=== PATIENT | female | born 1990 | race Caucasian/White ===

== ENCOUNTER 2018-03-19 18:25 | Emergency (ER) | payer OTHER, MEDICAID ==
[~2018-03-19] VITALS: Ht 162.6 cm; Wt 97.5 kg
[~2018-03-19 18:25] MED LIST: ACETAMINOPHEN-1 EAC1 PO; ACETAMINOPHEN-120 ML PO; AMOXICILLIN 50500 M1 PO; AMOXICILLIN 50500 MG PO; ASPERDRINK81 MG PO; ATIVAN1 MG PO; BACTRIM 400-801 EACH PO; BACTRIM DS TAB1 EACH PO; BENADRYL25 MG PO; DARVOCET-N 1001 EACH PO; ELIMITE60 GM TP; FIBER LAXATIVE500 MG PO; FIORINAL 50-321 EACH PO; FLAGYL500 MG PO; IBUPROFEN 800800 M1 PO; IBUPROFEN 800800 MG PO; KEFLEX500 MG PO; KENALOG60 GM TP; LIDOCAINE VISC100 M1 SWISH&SPIT; MEDROLDOSEPACK PO; NAPROSYN500 MG PO; NIX TP; NOHOMEMEDICATIONS; NORCO 5-325 TA1 EAC1 PO; PERCOCET 5-3251 EACH PO; PERCOCET PO; PHENERGAN-CODE120 ML PO; PREDNISONE 10 M10 MG PO; ZOFRAN ODT4 MG PO
[2018-03-19] MEDS ORDERED: MYRBETRIQ25 MG PO (18:42)
[2018-03-19 19:43] LABS: URINE BLOOD NEGATIVE (Negative); URINE CLARITY CLEAR; URINE COLOR OTHER; URINE GLUCOSE-RANDOM NEGATIVE (Negative); URINE KETONES NEGATIVE (Negative); URINE LEUKOCYTES-REFLEX NEGATIVE (Negative); URINE NITRITE-REFLEX NEGATIVE (Negative); URINE PROTEIN NEGATIVE (Negative); URINE SPECIFIC GRAVITY >= 1.030 (1.005-1.030); URINE UROBILINOGEN 0.2 E.U./dl (0.2-1.0)
[2018-03-19 19:44] LABS: URINE BILIRUBIN 1+ (Negative)
[2018-03-19 20:05] LABS: ICTOTEST (BILI CONFIRMATORY) Negative (Negative)
[2018-03-19 20:53] LABS: ABSOLUTE BASOPHILS 0.1 thou/uL (0.0-0.2); ABSOLUTE EOSINOPHILS 0.2 thou/uL (0.0-0.7); ABSOLUTE LYMPHOCYTES 3.6 thou/uL (0.8-5.3); ABSOLUTE MONOCYTES 0.6 thou/uL (0.0-1.2); ABSOLUTE NEUTROPHILS 4.3 thou/uL (1.6-8.1); EOSINOPHILS 2.5 %; HEMATOCRIT 41.9 % (37.0-47.0); LYMPHOCYTES 40.6 %; MCH 29.3 pg (26.0-34.0); MCHC 33.5 g/dL (28.0-37.0); MCV 87.6 fL (80.0-100.0); MPV 8.5 fl. (7.2-11.1); NUCLEATED RBCS 0 /100WBC; PLATELET COUNT* 280 thou/uL (150-400); POLYS 48.9 %; RBC 4.78 mil/uL (4.20-5.00); RDW-CV 12.4 % (10.5-14.5); WBC 8.8 thou/uL (4.0-11.0)
[2018-03-19 20:59] LABS: CALCIUM 8.8 mg/dL (8.5-10.1); CREATININE 0.8 mg/dL (0.6-1.3); POTASSIUM 4.1 mmol/L (3.5-5.1)
[2018-03-19 21:04] LABS: ALBUMIN 3.6 g/dL (3.4-5.0); TOTAL BILIRUBIN 0.2 mg/dL (<0.1-1.0); TOTAL PROTEIN 7.2 g/dL (6.4-8.2)
[2018-03-19] MEDS ORDERED: FLOMAX0.4 MG PO (21:11)
[2018-03-19] MEDS ORDERED: TORADOL 10 MG T10 MG PO (21:13)
[2018-03-19 23:18] VITALS: BP 120/73
== END 2018-03-19 23:20 | disposition home or self-care (01) ==
LOC: M.ERS 18:25
PROVIDERS: Nurse Practitioner Family
DX: R33.9 Retention of urine, unspecified (principal); F17.210 Nicotine dependence, cigarettes, uncomplicated; Z90.49 Acquired absence of other specified parts of digestive tract; Z88.6 Allergy status to analgesic agent

== ENCOUNTER 2018-09-30 17:13 | Emergency (ER) | payer OTHER, MEDICAID ==
[~2018-09-30] VITALS: Ht 162.6 cm; Wt 99.8 kg
[~2018-09-30 17:13] MED LIST changes: +FLOMAX0.4 MG PO; +MYRBETRIQ25 MG PO; +TORADOL 10 MG T10 MG PO
[2018-09-30] MEDS ORDERED: VESICARE10 M1 PO (17:17)
[2018-09-30] MEDS ORDERED: PRED-G 1% EYE DR5 ML OPHTHALMIC (17:49)
[2018-09-30 17:59] VITALS: BP 123/76
--- NOTE | 2018-10-01 10:10 | EKG ---
[place] [address] ELECTROCARDIOGRAM REPORT Name: ECTOR CHRISTIANSON Room: [facility]#: [id number] Admission: 09/30/18 Attend Phys: Discharge: 09/30/18 Date of : [birth year] Report #: [id number] THIS REPORT FOR: //name// [facility] ED Test Date: 2018-09-30 Test Time: 17:21:12 Pat Name: ECTOR CHRISTIANSON Department: Room: Gender: F Chiseler Head: Ezequiel TORRES : 1990 Requested By: Tad Gurrola Order Number: [id number] Noreen MD: Harpreet Cortez Measurements Intervals [place] Rate: 93 P: 17 MA: 119 QRS: 14 QRSD: 96 T: 15 QT: 360 QTc: 448 Interpretive Statements Sinus rhythm Borderline short MA interval Low voltage, precordial leads Compared to ECG 01/21/2014 00:33:33 Low QRS voltage now present Electronically Signed On 10-01-2018 10:10:41 DRIVER RECRUITER by Harpreet Cortez [email or web address] <ELECTRONICALLY SIGNED> By: Harpreet Cortez MD, [facility] 10/01/18 1010 20 20 Harpreet Cortez MD, [facility] /EPI
== END 2018-09-30 18:00 | disposition home or self-care (01) ==
LOC: M.ERS 17:13
DX: R09.89 Other specified symptoms and signs involving the circulatory and respiratory systems (principal); R05 Cough; H11.31 Conjunctival hemorrhage, right eye; Z90.49 Acquired absence of other specified parts of digestive tract; F17.210 Nicotine dependence, cigarettes, uncomplicated; Z88.8 Allergy status to other drugs, medicaments and biological substances

== ENCOUNTER 2018-10-19 15:57 | Emergency (ER) | payer OTHER, MEDICAID ==
[~2018-10-19] VITALS: Ht 162.6 cm; Wt 99.8 kg
[~2018-10-19 15:57] MED LIST changes: +PRED-G 1% EYE DR5 ML OPHTHALMIC; +VESICARE10 M1 PO
[2018-10-19] MEDS ORDERED: NAPROSYN500 MG PO (17:44)
[2018-10-19] MEDS ORDERED: FLEXERIL PO (17:44)
[2018-10-19 17:45] VITALS: BP 134/72
== END 2018-10-19 17:45 | disposition home or self-care (01) ==
LOC: M.ERS 15:57
DX: M25.512 Pain in left shoulder (principal); F17.210 Nicotine dependence, cigarettes, uncomplicated; Z88.6 Allergy status to analgesic agent; Z90.49 Acquired absence of other specified parts of digestive tract

== ENCOUNTER 2018-12-15 23:23 | Emergency (ER) | payer OTHER, MEDICAID ==
[~2018-12-15] VITALS: Ht 160 cm; Wt 98.4 kg
[~2018-12-15 23:23] MED LIST changes: +FLEXERIL PO
[2018-12-15 23:53] LABS: ABSOLUTE BASOPHILS 0.1 thou/uL (0.0-0.2); ABSOLUTE EOSINOPHILS 0.3 thou/uL (0.0-0.7); ABSOLUTE MONOCYTES 0.7 thou/uL (0.0-1.2); ABSOLUTE NEUTROPHILS 6.7 thou/uL (1.6-8.1); BASOPHILS 0.7 %; EOSINOPHILS 2.3 %; HEMATOCRIT 40.2 % (37.0-47.0); HEMOGLOBIN 13.7 gm/dL (12.0-15.0); LYMPHOCYTES 28.1 %; MCH 30.1 pg (26.0-34.0); MCHC 34.2 g/dL (28.0-37.0); MONOCYTES 6.4 %; MPV 8.3 fl. (7.2-11.1); NUCLEATED RBCS 0 /100WBC; PLATELET COUNT* 286 thou/uL (150-400); POLYS 62.5 %; RBC 4.56 mil/uL (4.20-5.00); RDW-CV 12.6 % (10.5-14.5); WBC 10.8 thou/uL (4.0-11.0)
[2018-12-16 00:06] LABS: CALCIUM 9.1 mg/dL (8.5-10.1); CREATININE 0.8 mg/dL (0.6-1.3); POTASSIUM 3.7 mmol/L (3.5-5.1)
[2018-12-16 00:11] LABS: ALBUMIN 3.8 g/dL (3.4-5.0); TOTAL BILIRUBIN 0.1 mg/dL (<0.1-1.0); TOTAL PROTEIN 7.6 g/dL (6.4-8.2)
[2018-12-16] MEDS ORDERED: NORCO 5-325 TA1 EACH PO (02:11)
[2018-12-16] MEDS ORDERED: ZOFRAN ODT4 MG PO (02:11)
[2018-12-16 02:22] VITALS: BP 115/60
== END 2018-12-16 02:24 | disposition home or self-care (01) ==
LOC: M.ERS 23:23
PROVIDERS: Emergency Medicine
DX: S06.0X0A Concussion without loss of consciousness, initial encounter (principal); F17.210 Nicotine dependence, cigarettes, uncomplicated; Z88.6 Allergy status to analgesic agent; Z90.49 Acquired absence of other specified parts of digestive tract; W18.39XA Other fall on same level, initial encounter; Y92.89 Other specified places as the place of occurrence of the external cause; Y93.89 Activity, other specified; Y99.8 Other external cause status

== ENCOUNTER 2018-12-24 21:17 | Emergency (ER) | payer OTHER, MEDICAID ==
[~2018-12-24] VITALS: Ht 160 cm; Wt 98.4 kg
[~2018-12-24 21:17] MED LIST changes: +NORCO 5-325 TA1 EACH PO
[2018-12-24 22:22] LABS: ABSOLUTE BASOPHILS 0.1 thou/uL (0.0-0.2); ABSOLUTE EOSINOPHILS 0.2 thou/uL (0.0-0.7); ABSOLUTE LYMPHOCYTES 3.4 thou/uL (0.8-5.3); ABSOLUTE MONOCYTES 0.6 thou/uL (0.0-1.2); ABSOLUTE NEUTROPHILS 3.9 thou/uL (1.6-8.1); BASOPHILS 1.5 %; EOSINOPHILS 2.9 %; HEMATOCRIT 41.7 % (37.0-47.0); HEMOGLOBIN 14.2 gm/dL (12.0-15.0); MCH 29.5 pg (26.0-34.0); MCHC 34.1 g/dL (28.0-37.0); MCV 86.5 fL (80.0-100.0); MONOCYTES 7.1 %; MPV 8.6 fl. (7.2-11.1); NUCLEATED RBCS 0 /100WBC; PLATELET COUNT* 335 thou/uL (150-400); POLYS 47.5 %; RBC 4.82 mil/uL (4.20-5.00); RDW-CV 12.9 % (10.5-14.5); WBC 8.3 thou/uL (4.0-11.0)
[2018-12-24 22:29] LABS: APTT 28.8 Seconds (25.0-31.3); INR 0.9; PROTIME 9.6 Seconds (9.20-11.50)
[2018-12-24 22:31] LABS: ALBUMIN 3.9 g/dL (3.4-5.0); CALCIUM 9.4 mg/dL (8.5-10.1); CREATININE 0.8 mg/dL (0.6-1.3); POTASSIUM 3.3 mmol/L (3.5-5.1); TOTAL BILIRUBIN 0.2 mg/dL (<0.1-1.0); TOTAL PROTEIN 7.8 g/dL (6.4-8.2)
[2018-12-25] MEDS ORDERED: ONDANSETRON HCL4 M2 PO (00:04)
[2018-12-25] MEDS ORDERED: ACETAMINOPHEN-1 EAC1 PO (00:04)
[2018-12-25 01:33] VITALS: BP 139/63
== END 2018-12-25 01:35 | disposition still patient (30) ==
LOC: M.ERS 21:17
PROVIDERS: Physician Assistant
DX: R51 Headache (principal); F17.210 Nicotine dependence, cigarettes, uncomplicated; Z88.6 Allergy status to analgesic agent; Z90.49 Acquired absence of other specified parts of digestive tract

== ENCOUNTER 2019-12-07 21:31 | Emergency (ER) | payer OTHER ==
[~2019-12-07] VITALS: Ht 160 cm; Wt 92.1 kg
[~2019-12-07 21:31] MED LIST changes: +ONDANSETRON HCL4 M2 PO
[2019-12-07] MEDS ORDERED: PROZAC20 M1 PO (21:43)
[2019-12-07 22:45] LABS: CALCIUM 8.9 mg/dL (8.5-10.1); CREATININE 0.8 mg/dL (0.6-1.3); POTASSIUM 3.3 mmol/L (3.5-5.1)
[2019-12-07 22:50] LABS: ALBUMIN 3.8 g/dL (3.4-5.0); TOTAL BILIRUBIN 0.2 mg/dL (<0.1-1.0); TOTAL PROTEIN 8.2 g/dL (6.4-8.2)
[2019-12-07 22:54] LABS: ABSOLUTE BASOPHILS 0.1 thou/uL (0.0-0.2); ABSOLUTE EOSINOPHILS 0.2 thou/uL (0.0-0.7); ABSOLUTE LYMPHOCYTES 3.2 thou/uL (0.8-5.3); ABSOLUTE MONOCYTES 0.8 thou/uL (0.0-1.2); ABSOLUTE NEUTROPHILS 5.8 thou/uL (1.6-8.1); BASOPHILS 1.3 %; EOSINOPHILS 1.8 %; HEMATOCRIT 41.1 % (37.0-47.0); HEMOGLOBIN 14.1 gm/dL (12.0-15.0); LYMPHOCYTES 31.8 %; MCH 29.7 pg (26.0-34.0); MCHC 34.3 g/dL (28.0-37.0); MCV 86.5 fL (80.0-100.0); MONOCYTES 7.8 %; MPV 8.5 fl. (7.2-11.1); NUCLEATED RBCS 0 /100WBC; PLATELET COUNT* 291 thou/uL (150-400); POLYS 57.3 %; RBC 4.76 mil/uL (4.20-5.00); RDW-CV 13.2 % (10.5-14.5); WBC 10.1 thou/uL (4.0-11.0)
[2019-12-07] MEDS ORDERED: NORCO 5-325 TA1 EAC1 PO (23:40)
[2019-12-07] MEDS ORDERED: IBUPROFEN 800800 M1 PO (23:40)
[2019-12-08 00:15] VITALS: BP 137/86
== END 2019-12-08 00:30 | disposition home or self-care (01) ==
LOC: M.ERS 21:31
PROVIDERS: Nurse Practitioner Family
DX: R51 Headache (principal); F17.210 Nicotine dependence, cigarettes, uncomplicated; Z90.49 Acquired absence of other specified parts of digestive tract; Z88.8 Allergy status to other drugs, medicaments and biological substances

== ENCOUNTER 2019-12-14 12:32 | Emergency (ER) | payer OTHER ==
[~2019-12-14] VITALS: Ht 162.6 cm; Wt 90.7 kg
[~2019-12-14 12:32] MED LIST changes: +PROZAC20 M1 PO
[2019-12-14 13:37] LABS: ABSOLUTE BASOPHILS 0.1 thou/uL (0.0-0.2); ABSOLUTE EOSINOPHILS 0.2 thou/uL (0.0-0.7); ABSOLUTE LYMPHOCYTES 2.6 thou/uL (0.8-5.3); ABSOLUTE MONOCYTES 0.9 thou/uL (0.0-1.2); ABSOLUTE NEUTROPHILS 8.6 thou/uL (1.6-8.1); BASOPHILS 1.1 %; EOSINOPHILS 1.5 %; HEMATOCRIT 40.3 % (37.0-47.0); HEMOGLOBIN 13.6 gm/dL (12.0-15.0); LYMPHOCYTES 20.8 %; MCH 29.1 pg (26.0-34.0); MCHC 33.7 g/dL (28.0-37.0); MCV 86.1 fL (80.0-100.0); MONOCYTES 7.1 %; MPV 8.4 fl. (7.2-11.1); NUCLEATED RBCS 0 /100WBC; PLATELET COUNT* 322 thou/uL (150-400); POLYS 69.5 %; RBC 4.68 mil/uL (4.20-5.00); RDW-CV 12.9 % (10.5-14.5); WBC 12.4 thou/uL (4.0-11.0)
[2019-12-14 13:40] LABS: URINE BILIRUBIN NEGATIVE (Negative); URINE BLOOD 2+ (Negative); URINE CLARITY SL CLOUDY; URINE COLOR YELLOW; URINE GLUCOSE-RANDOM NEGATIVE (Negative); URINE KETONES NEGATIVE (Negative); URINE LEUKOCYTES-REFLEX NEGATIVE (Negative); URINE NITRITE-REFLEX NEGATIVE (Negative); URINE PROTEIN NEGATIVE (Negative); URINE SPECIFIC GRAVITY >= 1.030 (1.005-1.030); URINE UROBILINOGEN 0.2 E.U./dl (0.2-1.0)
[2019-12-14 13:46] LABS: SQUAMOUS >10 Many /LPF (0-3); URINE RBC 3-10 Few /HPF (0-2); URINE WBC-REFLEX None Seen /HPF (0-5)
[2019-12-14 13:48] LABS: BACTERIA-REFLEX 1-9 Few /HPF (None Seen); CASTS None Seen /LPF (None Seen); CRYSTALS None Seen /LPF (None Seen); MUCUS >6 Heavy strn/LPF (None Seen)
[2019-12-14 13:52] LABS: CALCIUM 8.8 mg/dL (8.5-10.1); CREATININE 0.8 mg/dL (0.6-1.3); POTASSIUM 3.9 mmol/L (3.5-5.1)
[2019-12-14 13:57] LABS: ALBUMIN 3.4 g/dL (3.4-5.0); TOTAL BILIRUBIN 0.2 mg/dL (<0.1-1.0)
[2019-12-14] MEDS ORDERED: CIPROFLOXIN HC2.5 M1 OPHTHALMIC (15:35)
[2019-12-14] MEDS ORDERED: KEFLEX500 M1 PO (15:35)
[2019-12-14 15:49] VITALS: BP 135/89
== END 2019-12-14 15:50 | disposition home or self-care (01) ==
LOC: M.ERS 12:32
PROVIDERS: Physician Assistant
DX: H10.9 Unspecified conjunctivitis (principal); L03.211 Cellulitis of face; R10.2 Pelvic and perineal pain; F17.210 Nicotine dependence, cigarettes, uncomplicated; Z90.49 Acquired absence of other specified parts of digestive tract; Z88.8 Allergy status to other drugs, medicaments and biological substances